=== PATIENT | male | born 1960 | race Caucasian/White ===

== ENCOUNTER 2016-04-05 20:58 | Emergency (ER) | payer MEDICAID, MEDICARE, OTHER ==
[~2016-04-05] VITALS: Ht 177.8 cm; Wt 101.9 kg
[~2016-04-05 20:58] MED LIST: BUTA1CAP PO; HYOS0.128 PO; LIPI40TA PO; METO50TA11 PO; OMEP20TA PO; ZOLO100T PO
[2016-04-05 21:18] VITALS: BP 110/70; PULSE 68; RESP 16; TEMP 98.5; O2SAT 96
[2016-04-05] MEDS ORDERED: METO50TA11 PO (21:29)
--- NOTE | 2016-04-05 21:56 | PD ---
HPI Chief Complaint: Oral / Dental Pain or Problem Time Seen by Provider: 21:56 Travel History International Travel<30 days: No Contact w/Intl Traveler<30days: No Traveled to known affect area: No History of Present Illness HPI 56 year old male presents to the ED for evaluation of 3 day history of right lower dental pain. Patient denies radiation of the pain, fever, chills. He denies difficulties opening and closing the mouth or swallowing his own secretions. He states he is unsure if he has any dental problems in the area. No treatment attempted at home. Patient endorses allergies to aspirin, Toradol , Ultram. PFSH Past Medical History Arthritis: Yes (BILATERAL KNEES) Asthma: No Autoimmune Disease: Yes (RA) Blood Disorders: No Anxiety: Yes Depression: Yes Heart Rhythm Problems: No Cancer: No Cardiomyopathy: Yes Cardiovascular Problems: Yes (CARDIOMEGALY) High Cholesterol: Yes Chemotherapy: No Chest Pain: No Congestive Heart Failure: No COPD: No Cerebrovascular Accident: No Coronary Artery Disease: Yes Diabetes: No Diminished Hearing: No Endocrine: No Gastrointestinal Disorders: Yes (swollen abdomen,"for many years") GERD: Yes Glaucoma: No Genitourinary: No Headaches: Yes Hepatitis: No Hiatal Hernia: No Hypertension: Yes Immune Disorder: No Kidney Stones: No Musculoskeletal: Yes ("joint pain" "right shoulder pops out at times ") Neurologic: No Psychiatric: Yes Reproductive: No Respiratory: No Immunizations Current: Yes Migraines: Yes Myocardial Infarction: No Radiation Therapy: No Renal Failure: No Seizures: Yes (2001--ONE SEIZURE) Sleep Apnea: No Thyroid Disease: No Ulcer: No Tetanus Vaccination: > 5 Years Influenza Vaccination: No Past Surgical History Abdominal Surgery: No AICD: No Appendectomy: No Arteriovenous Shunt: No Cardiac Surgery: No Cholecystectomy: No Coronary Stent: No Ear Surgery: No Endocrine Surgery: No Eye Surgery: Yes (1978--L.ORBITAL RECONSTRUCTION) Genitourinary Surgery: No Gynecologic Surgery: No Insulin Pump: No Joint Replacement: No Neurologic Surgery: No Oral Surgery: No Pacemaker: No Thoracic Surgery: No Tonsillectomy: Yes Other Surgery: Yes (left orbit reconstruction) Social History Alcohol Use: No ("quit drinking in 1995") Tobacco Use: No Substance Use: No Allergies-Medications (Allergen,Severity, Reaction): Coded Allergies: Aspirin (Verified Adverse Reaction, Severe, "upset stomach", 04/05/16) Toradol (Verified Adverse Reaction, Severe, "upset stomach", 04/05/16) Ultram (Verified Adverse Reaction, Severe, "upset stomach", 04/05/16) Reported Meds & Prescriptions Reported Meds & Active Scripts Active Magic Mouthwash Adult Liq (Multi-Ingredient Mouthwash/Gargle) 120 Ml Susp 5 Ml SWISH-SWAL ACHS 10 Days Each 5mL contains: Nystatin 200,000units, Diphenhydramine 4.25mg, Viscous Lidocaine 10mg, De Jesus syrup 0.8 mL Zoloft (Sertraline HCl) 100 Mg Tab 100 Mg PO DAILY Lipitor (Atorvastatin Calcium) 40 Mg Tab 40 Mg PO HS Omeprazole 20 Mg Tab 20 Mg PO DAILY Reported Metoprolol Succinate ER 24 HR (Metoprolol Succinate) 50 Mg Tab 50 Mg PO BID Fioricet (Qascgyoggp-Sxiepgyrlqhto-Owcjbhvr) 50-300-40 Mg Cap 3 Cap PO Q4H PRN Review of Systems Except as stated in HPI: all other systems reviewed are Neg Physical Exam Narrative GENERAL: Well-nourished, well-developed male in no acute distress. SKIN: Warm and dry. HEAD: Normocephalic. EYES: No scleral icterus. No injection or drainage. ENT: Pearly castaneda tympanic membrane's bilaterally. Oropharynx without erythema, edema or exudates. DENTAL: Terrible dentition overall. Teeth 32, 31, 30, 29, 28 are missing. The gingiva is smooth, well healed, no signs of abscess. There is a small ulcer just posterior to the lower alveolar ridge. NECK: Supple, trachea midline. No JVD or lymphadenopathy. CARDIOVASCULAR: Regular rate and rhythm without murmurs, gallops, or rubs. RESPIRATORY: Breath sounds equal bilaterally. No accessory muscle use. GASTROINTESTINAL: Abdomen soft, non-tender, nondistended. MUSCULOSKELETAL: No cyanosis, or edema. BACK: Nontender without obvious deformity. No CVA tenderness. Data Data Last Documented VS Vital Signs Date Time Temp Pulse Resp B/P Pulse Ox O2 Delivery O2 Flow Rate FiO2 04/05/16 21:18 98.5 68 16 110/70 96 MDM Medical Decision Making Medical Screen Exam Complete: Yes Emergency Medical Condition: Yes Differential Diagnosis Dentalgia versus dental caries versus dental abscess versus ulcer versus other Narrative Course 56 year old male presents to the ED for evaluation of 3 day history of right lower dental pain. Patient denies radiation of the pain, fever, chills. He denies difficulties opening and closing the mouth or swallowing his own secretions. He states he is unsure if he has any dental problems in the area. No treatment attempted at home. Patient endorses allergies to aspirin, Toradol , Ultram. Vitals reviewed. Physical exam reveals a nontoxic-appearing white male in no acute distress. His Pearly tympanic members bilaterally. Oropharynx without erythema, edema or exudates. Terrible overall dentition. Teeth 30 03/17/27 are missing. The gingiva along the alveolar reinjection is smooth, well healed, no signs of abscess. There is a small ulcer just posterior to the lower alveolar ridge. No lymphadenopathy. This is oral ulcer. Patient was prescribed Magic mouthwash 3 times a day 10 days. He is instructed to follow-up with the dentist. He indicated understanding of the instructions and is amenable to plan of care. He is stable and discharged home. Diagnosis Primary Impression: Oral ulcer Referrals: Dentist Patient Instructions: General Instructions Additional Instructions: Practice good oral hygiene, brush teeth at least twice a day. Use Magic mouthwash 2-3 times a day for 10 days. Jold mouthwash on the right side of the mouth for approximately 30 seconds to 1 minute before swallowing or spitting. Follow-up with the dentist. Return to the ED for any urgent or emergent medical condition. Med/Other Pt SpecificInfo: Prescription(s) given Scripts Opwxzytf-Fyblhlwdfevfhlf-Jqrwrqpwc Liq (Magic Mouthwash Adult Liq)120 Ml Susp5 Ml SWISH-SWAL ACHS 10 Days Ref 0 Each 5mL contains: Nystatin 200,000units, Diphenhydramine 4.25mg, Viscous Lidocaine 10mg, De Jesus syrup 0.8 mL Prov:Nakul Dobbs MD 04/05/16 Disposition: 01 DISCHARGE HOME Condition: Stable Kadie Madrid Apr 05, 2016 21:56
[2016-04-05] MEDS ORDERED: MAGICADU2 SWISH-SWAL (22:10)
== END 2016-04-05 22:19 | disposition home or self-care (01) ==
LOC: PHEFT 20:58
DX: K12.1 Other forms of stomatitis (principal); F41.8 Other specified anxiety disorders; E78.00 Pure hypercholesterolemia, unspecified; I42.9 Cardiomyopathy, unspecified; I10 Essential (primary) hypertension
CPT/HCPCS: 99282

== ENCOUNTER 2017-07-26 14:27 | Emergency (ER) | payer MEDICAID, OTHER ==
[~2017-07-26] VITALS: Ht 177.8 cm; Wt 90.0 kg
[~2017-07-26 14:27] MED LIST changes: -HYOS0.128 PO; +MAGICADU2 SWISH-SWAL; +METO1TAB9 PO; -METO50TA11 PO; -OMEP20TA PO; +OMEP20TA93 PO
[2017-07-26 14:33] VITALS: BP 120/64; PULSE 64; RESP 16; TEMP 98.7; O2SAT 96
--- NOTE | 2017-07-26 15:01 | PD ---
HPI Chief Complaint: Skin Problem Time Seen by Provider: 14:44 Travel History International Travel<30 days: No Contact w/Intl Traveler<30days: No Traveled to known affect area: No History of Present Illness HPI 57-year-old male presents emergency department for evaluation lesions to his scalp that is been present for approximately 1 month. Says that he has been here to the emergency department in dermatology and has not had resolution of these lesions. Says that he was prescribed erythromycin ointment however, did not use it. He has also been prescribed amoxicillin and noted some improvement however, returned quickly. Says that the lesion has become more painful and decided to come in today for evaluation. He denies fevers or chills. He denies significant discharge from the area. He is rather anxious because of these lesions because they have not been healing. PFSH Past Medical History Hx Anticoagulant Therapy: No Arthritis: Yes (BILATERAL KNEES) Asthma: No Autoimmune Disease: Yes (RA) Blood Disorders: No Anxiety: Yes Depression: Yes Heart Rhythm Problems: No Cancer: No Cardiomyopathy: Yes Cardiovascular Problems: Yes (HTN, CHOL) High Cholesterol: Yes Chemotherapy: No Chest Pain: No Congestive Heart Failure: No COPD: No Cerebrovascular Accident: No Coronary Artery Disease: Yes Diabetes: No Diminished Hearing: No Endocrine: No Gastrointestinal Disorders: Yes (swollen abdomen,"for many years") GERD: Yes Glaucoma: No Genitourinary: No Headaches: Yes Hepatitis: No Hiatal Hernia: No Hypertension: Yes Immune Disorder: No Kidney Stones: No Musculoskeletal: Yes ("joint pain" "right shoulder pops out at times ") Neurologic: No Psychiatric: Yes Reproductive: No Respiratory: No Immunizations Current: Yes Migraines: Yes Myocardial Infarction: No Radiation Therapy: No Renal Failure: No Seizures: Yes (2001--ONE SEIZURE) Sleep Apnea: No Thyroid Disease: No Ulcer: No Past Surgical History Abdominal Surgery: No AICD: No Appendectomy: No Arteriovenous Shunt: No Cardiac Surgery: No Cholecystectomy: No Coronary Stent: No Ear Surgery: No Endocrine Surgery: No Eye Surgery: Yes (1978--.ORBITAL RECONSTRUCTION) Genitourinary Surgery: No Gynecologic Surgery: No Insulin Pump: No Joint Replacement: No Neurologic Surgery: No Oral Surgery: No Pacemaker: No Thoracic Surgery: No Tonsillectomy: Yes Other Surgery: Yes (left orbit reconstruction SKIN GRAFT RT WRIST) Social History Alcohol Use: No ("quit drinking in 1995") Tobacco Use: No Substance Use: No Allergies-Medications (Allergen,Severity, Reaction): Coded Allergies: aspirin (Verified Adverse Reaction, Severe, "upset stomach", 07/26/17) ketorolac (Verified Adverse Reaction, Severe, "upset stomach", 07/26/17) tramadol (Verified Adverse Reaction, Severe, "upset stomach", 07/26/17) Reported Meds & Prescriptions Reported Meds & Active Scripts Active Ibuprofen 600 Mg Tab 600 Mg PO Q8HR PRN 5 Days Tylenol (Acetaminophen) 325 Mg Tab 325 Mg PO Q4H PRN 7 Days Mupirocin Topical (Mupirocin) 2 % Oint 1 Applic TOPICAL BID 14 Days Zoloft (Sertraline HCl) 100 Mg Tab 100 Mg PO DAILY Lipitor (Atorvastatin Calcium) 40 Mg Tab 40 Mg PO HS Omeprazole 20 Mg Tab 20 Mg PO DAILY Reported Metoprolol Succinate ER 24 HR (Metoprolol Succinate) 50 Mg Tab 50 Mg PO BID Review of Systems Except as stated in HPI: all other systems reviewed are Neg Physical Exam Narrative GENERAL: Well-nourished, well-developed patient, in NAD SKIN: Focused skin assessment warm/dry. Top of scalp-approximately 1 cm round lesion with honey crusting, 2 other wounds located in close proximity that are smaller in size without exudate. No surrounding erythema or lymph angiopathic spread. HEAD: Normocephalic. Atraumatic. EYES: No scleral icterus. No injection or drainage. THROAT: Airway is patent. NECK: Supple, trachea midline. No JVD or lymphadenopathy. No meningismus. MUSCULOSKELETAL: No cyanosis, or edema. BACK: Nontender without obvious deformity. No CVA tenderness. Psych: Flat affect, anxious Data Data Last Documented VS Vital Signs Date Time Temp Pulse Resp B/P (MAP) Pulse Ox O2 Delivery O2 Flow Rate FiO2 07/26/17 14:33 98.7 64 16 120/64 (82) 96 Orders Orders Ed Discharge Order (07/26/17 15:03) [facility] Medical Decision Making Medical Screen Exam Complete: Yes Emergency Medical Condition: Yes Differential Diagnosis Impetigo, cellulitis, erysipelas, basal cell carcinoma, squamous cell carcinoma Narrative Course 57-year-old male presents emergency department for evaluation lesions to his scalp that is been present for approximately 1 month. Says that he has been here to the emergency department in dermatology and has not had resolution of these lesions. Says that he was prescribed erythromycin ointment however, did not use it. He has also been prescribed amoxicillin and noted some improvement however, returned quickly. Says that the lesion has become more painful and decided to come in today for evaluation. He denies fevers or chills. He denies significant discharge from the area. He is rather anxious because of these lesions because they have not been healing. Vital signs are stable. His exam findings consistent with impetigo versus basal cell carcinoma. Patient said that amoxicillin did reduce his symptoms and pain but promptly returned. I suspect it is impetigo based off of history and physical today. Patient will be discharged mupirocin. Advised to use medication as prescribed. Patient also is complaining of pain to the area. Ibuprofen for pain. Upon discharge, patient requested pain medication. I do not believe this is indicated. Prescribed Tylenol and ibuprofen. Advised to take his medications on a full stomach. Diagnosis Primary Impression: Impetigo Referrals: [facility] [employer] Additional Instructions: Use the medication as prescribed. Use a hat when going outside to reduce complications. Avoid touching the area to reduce the spread of the infection. Follow-up with her primary care physician or [facility]. Follow-up with a nurse recruiter as discussed. Scripts Ibuprofen (Ibuprofen) 600 Mg Tab 600 MG PO Q8HR Y for PAIN for 5 Days, TAB 0 Refills Prov: Steven Swain MD 07/26/17 Acetaminophen (Tylenol) 325 Mg Tab 325 MG PO Q4H Y for PAIN SCALE 6 TO 10 for 7 Days, #28 TAB 0 Refills Prov: Steven Swain MD 07/26/17 Mupirocin Topical (Mupirocin Topical) 2 % Oint 1 APPLIC TOPICAL BID for Mgmt Bacterial Infection for 14 Days, #1 TUBE 0 Refills Prov: Steven Swain MD 07/26/17 Disposition: 01 DISCHARGE HOME Condition: Stable Jennifer Galeano Jul 26, 2017 15:01
[2017-07-26] MEDS ORDERED: MUPI2OIN TOPICAL (15:02)
[2017-07-26] MEDS ORDERED: TYLE325T PO (15:18)
[2017-07-26] MEDS ORDERED: IBUP-232 PO (15:27)
== END 2017-07-26 15:35 | disposition home or self-care (01) ==
LOC: PHEFT 14:27
DX: L01.00 Impetigo, unspecified (principal); M06.9 Rheumatoid arthritis, unspecified; F41.9 Anxiety disorder, unspecified; F32.9 Major depressive disorder, single episode, unspecified; E78.00 Pure hypercholesterolemia, unspecified; I25.10 Atherosclerotic heart disease of native coronary artery without angina pectoris; K21.9 Gastro-esophageal reflux disease without esophagitis; I10 Essential (primary) hypertension; Z79.899 Other long term (current) drug therapy
CPT/HCPCS: 99283